=== PATIENT | female | born 1970 | race American Indian/Alaskan Native ===

== ENCOUNTER 2021-01-01 13:59 | Outpatient (CLI) | payer MEDICAID ==
--- NOTE | 2021-01-01 14:43 | XRay Report ---
RIGHT KNEE 2 VIEWS INDICATION: UNILATERAL PRIMARY OSTEOARTHRITIS, RT KNEE, PAIN IN RT KNEE. COMPARISON: None. IMPRESSION: Mild medial compartment joint space narrowing is identified. The remaining compartments are unremarkable. No acute osseous abnormality or bone lesion. Small joint effusion is identified on the lateral image. Signer Name: Kendrick Phelan Jr, MD Signed: 01/01/2021 2:39 PM Workstation Name: [id number]
== END 2021-01-01 14:00 | disposition home or self-care (01) ==
LOC: XRAY 13:59
PROVIDERS: ATTEND Orthopaedic Surgery
DX: M25.461 Effusion, right knee (principal); M17.11 Unilateral primary osteoarthritis, right knee; M25.561 Pain in right knee

== ENCOUNTER 2021-07-16 09:57 | Outpatient (CLI) | payer MEDICAID ==
--- NOTE | 2021-07-16 11:47 | XRay Report ---
LEFT KNEE 2 VIEWS INDICATION: M25.562 PAIN IN LEFT KNEE. COMPARISON: None. IMPRESSION: No acute osseous or soft tissue abnormality. Mild tibial spine spurring and retropate llar spurring are identified. Small joint effusion is suspected on the lateral image. Signer Name: Kendrick Phelan Jr, MD Signed: 07/16/2021 10:35 AM Workstation Name: [id number]
== END 2021-07-16 09:58 | disposition home or self-care (01) ==
LOC: XRAY 09:57
PROVIDERS: ATTEND Orthopaedic Surgery
DX: M77.8 Other enthesopathies, not elsewhere classified (principal)

== ENCOUNTER 2021-08-19 10:11 | Outpatient (CLI) | payer MEDICAID ==
--- NOTE | 2021-08-19 12:55 | Cat Scan Report ---
CT lower extremity RT wo con INDICATION: M25.561 PAIN IN RIGHT KNEE POST ARTHROGRAM . TECHNIQUE: All CT scans at this location are performed using CT dose reduction for ALARA by means of automated e xposure control. COMPARISON: Right knee x-ray 01/01/2021 FINDINGS: Horizontal tear posterior horn medial meniscus extends to femoral articular surface sagittal image 47 . Lateral meniscus, cruciates, extensor mechanism and collateral ligaments appear intact. Moderate am ount of intra-articular contrast is noted. There is moderate chondral loss involving the lateral patellar facet. Focal deep chondral fissuring i s seen within the medial patellar facet. Moderate chondrosis is seen within the medial femoral tibial compartment with underlying subchondral cyst within the central weightbearing aspect medial femoral condyle IMPRESSION: 1. Horizontal tear posterior horn medial meniscus. 2. Moderate chondrosis of medial femoral tibial and patellofemoral compartments. Signer Name: Timothy Celaya MD Signed: 08/19/2021 12:51 PM Workstation Name: [id number]
--- NOTE | 2021-08-19 14:11 | Fluoroscopy Report ---
ARTHROGRAM OF THE RIGHT KNEE HISTORY: M25.561 PAIN IN RIGHT KNEE M25.461 EFFUSION,RIGHT KNEE. COMPARISON: None. CONSENT: The risks,benefits, and alternatives of theprocedure were discussed with the patient who agr eed toproceed. TECHNIQUE: The patient was placed supine on the fluoroscopy table. The right knee joint was identifi ed and overlying skin demarcated under fluoroscopic guidance. Area was prepped and draped in the usua l sterile fashion. Time-out was performed. Skin and subcutaneous tissues were anesthetized with li docaine. A 22-gauge spinal needle was placed into the joint space under fluoroscopic guidance. The initial inj ection demonstrated a small amount of extra-articular contrast agent in the anteromedial knee. The ne edle was repositioned to an intra-articular location. Dilute gadolinium mixture was then injected. Th e needle was removed and the patient tolerated the procedure well without immediate complication. FLUOROSCOPIC TIME: 2.5 minutes # IMAGES: 5 CONTRAST VOLUME: 35 ml dilute gadolinium mixture. IMPRESSION: Technically successful arthrogram. See post arthrogram CT Signer Name: Knedrick Phelan Jr, MD Signed: 08/19/2021 2:05 PM Workstation Name: [id number]
== END 2021-08-19 10:12 | disposition home or self-care (01) ==
LOC: FLUORO 10:11
PROVIDERS: ATTEND Orthopaedic Surgery
DX: S83.241A Other tear of medial meniscus, current injury, right knee, initial encounter (principal); M25.461 Effusion, right knee; M17.11 Unilateral primary osteoarthritis, right knee; X58.XXXA Exposure to other specified factors, initial encounter; Y93.89 Activity, other specified; Y92.89 Other specified places as the place of occurrence of the external cause; Y99.8 Other external cause status
CPT/HCPCS: 73580; 73700; Q9965

== ENCOUNTER 2021-09-08 07:08 | Day surgery (SDC) | payer MEDICAID ==
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
[~2021-09-08 07:08] MED LIST: ACETAMINOPHEN 500 MG TAB PO NR; CELECOXIB 200 MG CAP PO NR; LACTATED RINGERS 1,000 ML IV SCH; MAGNESIUM OXIDE 400 MG TAB PO NR
[2021-09-08] MEDS ORDERED: CLINDAMYCIN 600 MG/50 mL 600 MG/50 ML BAG IV ONE (07:58)
[2021-09-08] MEDS ORDERED: CLINDAMYCIN 600 MG/50 mL 600 MG/50 ML BAG IV NR (08:00)
[2021-09-08] MEDS ORDERED: ONDANSETRON 4 MG/2 ML INJ IV PRN (08:11)
[2021-09-08] MEDS ORDERED: HYDROmorphone 1 MG/1 ML INJ IV PRN ×2 (08:11→09:00)
--- NOTE | 2021-09-08 08:12 | Anesthesia Day of Surgery ---
Anesthesia Day of Surgery - Day of Surgery Patient Examined: Yes Patient H&P Reviewed: Yes Patient is NPO: Yes
[2021-09-08] MEDS ORDERED: MIDAZOLAM 2 MG/2 ML INJ ONE (09:00)
[2021-09-08] MEDS ORDERED: MIDAZOLAM 2 MG/2 ML INJ IV NR (09:00)
[2021-09-08] MEDS ORDERED: fentaNYL 100 MCG/2 ML INJ ONE (09:00)
[2021-09-08] MEDS ORDERED: KETAMINE/STERILE WATER 50 MG/ML SYRINGE ONE (09:01)
[2021-09-08] MEDS ORDERED: propofoL 200 MG/20 ML VIAL IV ONE (09:01)
[2021-09-08] MEDS ORDERED: EPINEPHrine/PF 1 MG/1 ML INJ ONE (09:07)
[2021-09-08] MEDS ORDERED: methylPREDNISolone ACETATE 40 MG/1 ML INJ ONE (09:16)
[2021-09-08] MEDS ORDERED: BUPIVACAINE/PF (0.5%) 5 MG/1 ML 30 ML VIAL INFILTRATI ONE ×2 (09:16→10:08)
[2021-09-08] MEDS ORDERED: ePHEDrine SULFATE 50 MG/1 ML INJ ONE (09:53)
[2021-09-08] MEDS ORDERED: EPINEPHrine/PF 1 MG/1 ML INJ IRRIGATION ONE (10:07)
[2021-09-08] MEDS ORDERED: methylPREDNISolone ACETATE 40 MG/1 ML INJ INTRA-ARTI ONE (10:08)
[2021-09-08] MEDS ORDERED: SODIUM CHLORIDE 0.9% IRRIG SOLN 2000 ML IR ONE (10:10)
[2021-09-08] MEDS ORDERED: ONDANSETRON 4 MG/2 ML INJ ONE (10:14)
[2021-09-08] MEDS ORDERED: SUCCINYLCHOLINE CHLORIDE 200 MG/10 ML INJ MDV ONE (10:14)
[2021-09-08] MEDS ORDERED: dexAMETHasone 20 MG/5 ML VIAL ONE (10:14)
[2021-09-08] MEDS ORDERED: ROCURONIUM 50 MG/5 ML INJ IV ONE (10:15)
--- NOTE | 2021-09-08 12:59 | Post Anesthesia Evaluation ---
- Post Anesthesia Evaluation Patient Participated: Yes Airway Patent: Yes Stable Respiratory Function: Yes Nausea/Vomiting: No Temp > 96.8F: Yes Pain Manageable: Yes Adequeate Hydration: Yes Anesthesia Complications: No Block Receding Appropriately: Not Applicable Patient on Ventilator: No
--- NOTE | 2021-09-08 15:27 | Operative Report ---
Operative Report Operative Report: OPERATIVE REPORT Preop diagnosis : 1. Chondromalacia patellae, right knee ; 2. Rule out medial meniscus tear, right knee Postop diagnosis: 1. Chondromalacia patellae with reactive synovitis, right knee 2. Lateral compartment tibial chondromalacia; right knee Procedure: 1. Surgical arthroscopy, right knee ; 2. Arthroscopic chondroplasty patellofemoral compartment and synovectomy, RIGHT knee ; Surgeon: Celso Falk MD perinatal breastfeeding assistant: None Anesthesia: General anesthesia with ETT Details of operative technique: The patient was brought from [facility] same-day surgery to the operating room where she underwent satisfactory general anesthesia utilizing an endotracheal tube. She was placed in the supine position and the left leg was placed in the well-leg chappell. The right leg was secured in the knee chappell as per protocol. . The knee was then exsanguinated with an Esmarch bandage and the tourniquet was inflated to 300 mmHg. Right knee was then prepped and draped in the usual sterile fashion with ChloraPrep solution . Arthroscopy was then carried out through standard anterior lateral portal. The patient was noted to have what appeared to be a normal medial meniscus with some fraying of the inner portion in the posterior medial section of the meniscus. The most striking finding was a generalized synovitis present along with areas of grade 1 and grade II chondromalacia on the medial femoral condyle. The meniscus was probed and found to be intact. The anterior compartment shows significant fibrous tissue infiltration and synovitis buildup. Both anterior and posterior cruciate ligaments were intact. The lateral compartment showed what appeared to be normal cartilage on the femoral condyle with evidence of lateral plateau chondromalacia grade 2 primarily. The lateral meniscus itself was intact without any evidence of a tear. The patellofemoral compartment showed the most profound chondromalacia with some areas of grade 3 and significant fibrous tissue buildup both in the trochlear groove and on the inferior pole of the patella. Utilizing a small shaver the fibrous tissue buildup and synovitis found primarily in the anterior compartment were completely evacuated with the arthroscopic shaver. The arthroscopic wand was then utilized to coalesce the bumpy surfaces in the patellofemoral compartment from the chondromalacia. The ablator was utilized to normalize the edges of the patella inferior pole to smooth out the articular surfaces. The same tool was also utilized for the lateral tibial plateau in the lateral compartment. Once this was completed all fluid and debris was then removed from the knee with suction. The arthroScope was withdrawn and the arthroscopic Polaroid pictures were saved. Portals were then closed with individual sutures of 2-0 undyed Vicryl suture for the subcuticular layer. The skin was reapproximated with Steri-Strips applied with benzoin. Sterile compressive dressing was then applied and secured with an Tahir wrap. The patient was then awakened and taken to recovery room in excellent condition Estimated blood loss: None Replacement: See anesthesia record Drains : None Complications: None Tourniquet time: 39 minutes
[2021-09-08 17:24] VITALS: BP 101/57
== END 2021-09-08 12:00 | disposition home or self-care (01) ==
LOC: OR 07:08
PROVIDERS: ATTEND Orthopaedic Surgery
DX: M22.41 Chondromalacia patellae, right knee (principal); M65.861 Other synovitis and tenosynovitis, right lower leg; J45.909 Unspecified asthma, uncomplicated; F32.9 Major depressive disorder, single episode, unspecified; F41.9 Anxiety disorder, unspecified; Z20.822 Contact with and (suspected) exposure to COVID-19; Z88.0 Allergy status to penicillin; Z79.899 Other long term (current) drug therapy; Z98.890 Other specified postprocedural states; Z90.49 Acquired absence of other specified parts of digestive tract; Z90.710 Acquired absence of both cervix and uterus; Z91.81 History of falling
CPT/HCPCS: 29877; J0171; J0330; J1030; J1100; J2250; J2405; J2704; J3010; J3490; J7120; J7502; U0003